=== PATIENT | female | born 1975 | race Caucasian/White ===

== ENCOUNTER 2017-11-22 23:34 | Inpatient (IN) | payer BC ==
[~2017-11-22] VITALS: Ht 152.4 cm; Wt 50.1 kg
[2017-11-23] MEDS ORDERED: IV NS 1000 ML 1,000 ML IV ONE (00:45)
[2017-11-23 01:00] LABS: BASOPHILS % (AUTO) 0.5 % (0.0-2.0); EOSINOPHILS # (AUTO) 0.2 K/uL (0.0-0.7); EOSINOPHILS % (AUTO) 4.7 % (0.0-7.0); HEMATOCRIT 36.1 % (31.2-41.9); HEMOGLOBIN 12.4 g/dL (10.9-14.3); LYMPHOCYTES # (AUTO) 1.5 K/uL (20.0-40.0); LYMPHOCYTES % (AUTO) 29.8 % (20.5-51.5); MEAN CORPUSCULAR HEMOGLOBIN 27.9 uug (24.7-32.8); MEAN CORPUSCULAR HGB CONC 34 g/dL (32.3-35.6); MEAN CORPUSCULAR VOLUME 81.4 fL (75.5-95.3); MONOCYTES # (AUTO) 0.4 K/uL (2.0-10.0); MONOCYTES % (AUTO) 8.1 % (0.0-11.0); NEUTROPHILS # (AUTO) 2.9 K/uL (1.8-8.9); NEUTROPHILS % (AUTO) 56.9 % (38.5-71.5); PLATELET COUNT (AUTO) 179 K/uL (179-408); RED BLOOD CELL COUNT(AUTO) 4.44 MIL/uL (3.63-4.92)
[2017-11-23 01:12] LABS: BILIRUBIN,TOTAL 1.1 mg/dL (0.2-1.0); CREATININE 0.7 mg/dL (0.6-1.3); POTASSIUM 3.2 mmol/L (3.5-5.1); TOTAL PROTEIN, SERUM 7.6 g/dL (6.4-8.2)
[2017-11-23] MEDS ORDERED: IV NORMAL SALINE 100 ML ONE (01:33)
[2017-11-23] MEDS ORDERED: IOHEXOL 300MG/ML 100 ML INFUS..BTL ONE (01:33)
[2017-11-23] MEDS ORDERED: NORMAL SALINE FLUSH 10 ML DISP.SYRIN ONE (01:33)
[2017-11-23 02:43] LABS: *BILIRUBIN,URIN NEGATIVE (NEGATIVE); *BLOOD, URINE Trace-intact (NEGATIVE); *CLARITY,URINE CLEAR (CLEAR); *COLOR,URINE YELLOW (YELLOW); *KETONES,URINE TRACE (NEGATIVE); *PROTEIN,URINE NEGATIVE (NEGATIVE); LEUKOCYTE ESTERASE ,URINE NEGATIVE (NEGATIVE); NITRITE, URINE NEGATIVE (NEGATIVE); PH,URINE 6.5 (5.0-8.0); UGLUCOSE NEGATIVE (NEGATIVE)
[2017-11-23 02:54] LABS: BACTERIA,URINE NONE SEEN /HPF (NONE SEEN); MUCUS,URINE MODERATE /LPF (0-FEW); SQUAMOUS EPITHELIAL CELL,UR MODERATE /HPF (NONE SEEN); WBC,URINE 0-3 /HPF (0-3)
[2017-11-23] MEDS ORDERED: HYDROCODONE/APAP 5-325MG TABLET PO ONE (02:57)
[2017-11-23] MEDS ORDERED: HYDROCODONE/APAP 5-325MG TABLET ONE (02:59)
[2017-11-23] MEDS ORDERED: IV NS 1000 ML 1,000 ML IV PRN (04:50)
[2017-11-23] MEDS ORDERED: Z GUARD REMEDY PASTE 57 GM TUBE TOP PRN (05:00)
[2017-11-23] MEDS ORDERED: ACETAMINOPHEN 325 MG TABLET PO PRN (05:00)
[2017-11-23] MEDS ORDERED: MAGNESIUM HYDROXIDE 30 ML LIQUID UDC PO PRN (05:00)
[2017-11-23] MEDS ORDERED: ONDANSETRON 4 MG/2 ML VIAL IV PRN (05:00)
[2017-11-23] MEDS ORDERED: MORPHINE SULFATE 2 MG/1 ML DISP.SYRIN IV PRN (05:00)
[2017-11-23 07:48] VITALS: BP 126/75
[2017-11-23] MEDS ORDERED: MORPHINE SULFATE 4 MG/1 ML DISP.SYRIN IV PRN (09:00)
[2017-11-23 11:43] VITALS: BP 117/73
[2017-11-23 12:00] VITALS: BP 144/71
[2017-11-23] MEDS: HYDROCODONE/APAP 5-325MG TABLET PO PRN (12:56)
[2017-11-23] MEDS: POTASSIUM CHLORIDE 10 MEQ in IV NORMAL SALINE 50 ML IV SCH ×2 (15:35→16:36)
[2017-11-23 15:41] VITALS: BP 122/75
[2017-11-23 17:52] LABS: HEMATOCRIT 30.7 % (31.2-41.9); HEMOGLOBIN 10.6 g/dL (10.9-14.3)
[2017-11-23 21:01] VITALS: BP 107/71
[2017-11-24] MEDS: POTASSIUM CHLORIDE 10 MEQ in IV NORMAL SALINE 50 ML IV SCH (00:19)
[2017-11-24 00:25] VITALS: BP 103/62
[2017-11-24 04:00] VITALS: BP 96/60
[2017-11-24 06:34] LABS: BASOPHILS % (AUTO) 0.8 % (0.0-2.0); EOSINOPHILS # (AUTO) 0.6 K/uL (0.0-0.7); EOSINOPHILS % (AUTO) 14.7 % (0.0-7.0); HEMATOCRIT 30.7 % (31.2-41.9); HEMOGLOBIN 10.8 g/dL (10.9-14.3); LYMPHOCYTES # (AUTO) 1.7 K/uL (20.0-40.0); LYMPHOCYTES % (AUTO) 41.1 % (20.5-51.5); MEAN CORPUSCULAR HEMOGLOBIN 28.5 uug (24.7-32.8); MEAN CORPUSCULAR HGB CONC 35 g/dL (32.3-35.6); MEAN CORPUSCULAR VOLUME 81.2 fL (75.5-95.3); MONOCYTES # (AUTO) 0.3 K/uL (2.0-10.0); NEUTROPHILS # (AUTO) 1.4 K/uL (1.8-8.9); NEUTROPHILS % (AUTO) 35.4 % (38.5-71.5); PLATELET COUNT (AUTO) 170 K/uL (179-408); RED BLOOD CELL COUNT(AUTO) 3.78 MIL/uL (3.63-4.92); WHITE BLOOD COUNT (AUTO) 4.1 K/uL (3.8-11.8)
[2017-11-24 06:52] LABS: CREATININE 0.6 mg/dL (0.6-1.3); MAGNESIUM 1.7 mg/dL (1.8-2.4); PHOSPHOROUS 4.2 mg/dL (2.5-4.9); POTASSIUM 3.9 mmol/L (3.5-5.1)
[2017-11-24 07:06] LABS: THYROID STIMULATING HORMONE 5.624 mIU/mL (0.358-3.740)
[2017-11-24] MEDS ORDERED: HYDR-3326 PO (09:07)
[2017-11-24] MEDS ORDERED: MAGNESIUM OXIDE 400 MG TABLET PO ONE (10:30)
[2017-11-24] MEDS: HYDROCODONE/APAP 5-325MG TABLET PO PRN (10:35)
[2017-11-24 11:08] LABS: BILIRUBIN,DIRECT 0.2 mg/dL (0.0-0.2); BILIRUBIN,TOTAL 1.3 mg/dL (0.2-1.0); TOTAL PROTEIN, SERUM 7.4 g/dL (6.4-8.2)
[2017-11-24 11:48] VITALS: BP 103/64
[2017-11-24 12:36] LABS: HEMATOCRIT 33.5 % (31.2-41.9); HEMOGLOBIN 11.8 g/dL (10.9-14.3)
[2017-11-24 15:58] VITALS: BP 102/67
== END 2017-11-24 16:10 | disposition home or self-care (01) | DRG 816 ==
LOC: ER 23:40 → TELE 11-23 06:20
PROVIDERS: ADMIT Nurse Practitioner Acute Care; ATTEND Nurse Practitioner Acute Care
DX: S36.09XA Other injury of spleen, initial encounter (principal); K76.0 Fatty (change of) liver, not elsewhere classified; D18.03 Hemangioma of intra-abdominal structures; D63.8 Anemia in other chronic diseases classified elsewhere; X50.9XXA Other and unspecified overexertion or strenuous movements or postures, initial encounter; Y92.89 Other specified places as the place of occurrence of the external cause; E87.6 Hypokalemia; J30.2 Other seasonal allergic rhinitis
CPT/HCPCS: 36415; 70030-TC; 71045; 83735; 84100; 84443; 84703; 85018; 85025; 85610; 85730; 93005; A4663; J2270; J3480; J3490; J7030; Q9967